=== PATIENT | female | born 1945 | race American Indian/Alaskan Native ===

== ENCOUNTER 2017-12-29 11:23 | Day surgery (SDC) | payer MEDICARE ==
[2017-12-22 09:39] VITALS: BMI 28.1
[2017-12-29] MEDS ORDERED: Propofol 10 mg/ml Inj (20 ML) ONE (14:13)
[2017-12-29] MEDS ORDERED: Midazolam 2 MG/2 ML VIAL ONE (14:13)
[2017-12-29] MEDS ORDERED: Lidocaine 2% Jelly (Uro-Jet) ONE (14:15)
[2017-12-29] MEDS ORDERED: Iodixanol 320 MG/ML 200 ML BOTTLE IV ONE (14:15)
[2017-12-29] MEDS ORDERED: cefTRIAXone IV 1 gm in Dextros 50 ML IVPB ONE (14:15)
[2017-12-29] MEDS ORDERED: Oxycodone/Acetaminophen 5/325 mg Tab PO PRN (14:56)
[2017-12-29 15:55] VITALS: BP 131/66; PULSE 57; RESP 15; TEMP 98; O2SAT 99
--- NOTE | 2017-12-30 08:41 | RAD ---
PROCEDURE: Retrograde urography HISTORY: HEMATURIA COMPARISON: Not available TECHNIQUE: Two upright films were obtained during retrograde administration of contrast material. FINDINGS: A business functional analyst radiograph demonstrates an unremarkable bowel gas pattern. Mild retained fecal matter is noted. The patient is status post left hip arthroplasty. Levoscoliosis of the lumbar spine is noted in conjunction with degenerative disc disease at L3-4. Two overhead films are obtained, 1 of which is labeled post. Contrast material fills the right ureter and pelvicaliceal system demonstrating no filling defect. Contrast material does not distend the left ureter or pelvicaliceal system adequately. Please see the full procedure report from Dr. Quique Castellanos. IMPRESSION: No gross abnormality. Limited evaluation
--- NOTE | 2018-01-18 09:08 | HP ---
REASON FOR ADMISSION: Voiding hematuria and voiding dysfunction. We discussed options with the patient, she preferred anesthesia. We discussed ____ therapy. We discussed, and the patient reported today for cystoscopy and retrograde pyelogram. surgical history as listed on the chart. No history of WI or CVA. The patient is undergoing chemo right now. SOCIAL HISTORY: Essentially unremarkable. ____. DIAGNOSES: Voiding dysfunction and hematuria. PLAN: 1. Antibiotic prophylaxis. 2. Cystoscope. 3. Retrograde pyelogram. 4. Possible biopsy today. 5. outpatient followup. Mook Castellanos MD
--- NOTE | 2018-01-18 09:09 | OP ---
PROCEDURE DATE: 12/29/2017 PREOPERATIVE DIAGNOSES: Voiding dysfunction, hematuria, and irritative complaints. POSTOPERATIVE DIAGNOSES: Voiding dysfunction, hematuria, and irritative complaints. PROCEDURE: General anesthesia, cystoscopy, bilateral retrograde pyelogram. SURGEON: Mook Castellanos MD COMPLICATIONS: There were no complications. BLOOD LOSS: Less than 10 mL. FINDINGS: 1. Normal bladder mucosa, no bladder tumors. 2. Essentially normal upper track. There were no complications. INDICATION: A very pleasant lady who is here for the above testing. We discussed options, risks, benefits. We also discussed the findings with her chemotherapy. We discussed various options with the patient, she is here now for the above treatment. PROCEDURE IN DETAIL: After obtaining informed consent, the patient was placed on the OR table. Routine monitor was placed. Timeout was called. We confirmed the patient and positioning. Cystoscope was introduced via the urethra. Ureteral orifices identified. . There is no bladder cancer identified. Retrograde pyelogram was performed. . There was no abnormality are appreciated. Overall, the patient tolerated the procedure well without complication. Mook Castellanos MD
== END 2017-12-29 17:36 | disposition home or self-care (01) ==
LOC: C.SDS 11:23
PROVIDERS: ATTEND Urology
DX: R31.29 Other microscopic hematuria (principal)
CPT/HCPCS: 52005; 74420; C1758; J0696; J1580; J1885; Q9966

== ENCOUNTER 2018-07-31 22:00 | Emergency (ER) | payer MEDICARE ==
[2018-07-31 22:00] VITALS: BMI 28.6
[2018-07-31 22:32] VITALS: BP 137/81; PULSE 116; RESP 20; TEMP 99.9; O2SAT 95
--- NOTE | 2018-07-31 22:48 | C.PDOC ---
History Of Present Illness Patient complains of cough for 2 weeks with associated nasal congestion and sore throat. Patient stets she was seen by her doctor last week and given antibiotic which she finished. She also is taking Medrol dose pack and using inhaler as needed. She mainly complains of cough that is persistent and keeps her awake at night and gives her headache. Patient also has copy of outpatient chest xray and labwork done, with normal findings. Time Seen by Provider: 07/31/18 22:37 Chief Complaint (Nursing): Cough, Cold, Congestion History Per: Patient History/Exam Limitations: no limitations Onset/Duration Of Symptoms: Days (14) Current Symptoms Are (Timing): Still Present Associated Symptoms: Cough Past Medical History Reviewed: Historical Data, Nursing Documentation, Vital Signs Vital Signs: Last Vital Signs Temp 99.9 F H 07/31/18 22:14 Pulse 116 H 07/31/18 22:14 Resp 20 07/31/18 22:14 BP 137/81 07/31/18 22:14 Pulse Ox 95 07/31/18 22:14 - Medical History PMH: Anemia, Arthritis, Colonic Polyps, HTN, Chronic Kidney Disease Surgical History: Endoscopy - [facility] Procedures OTH NONOPER CARD AND VASC MEASURE (01/26/15) Family History: States: Unknown Family Hx - Social History Hx Alcohol Use: No Hx Substance Use: No - Immunization History Hx Tetanus Toxoid Vaccination: No Hx Influenza Vaccination: No Hx Pneumococcal Vaccination: Yes Review Of Systems Constitutional: Negative for: Fever Eyes: Negative for: Redness ENT: Positive for: Nose Congestion Cardiovascular: Negative for: Chest Pain, Palpitations Respiratory: Positive for: Cough. Negative for: Shortness of Breath, Wheezing Neurological: Positive for: Headache. Negative for: Weakness, Numbness, Dizziness Physical Exam - Physical Exam Appears: Non-toxic, No Acute Distress Skin: Warm, Dry Head: Atraumatic, Normacephalic Eye(s): bilateral: Normal Inspection, EOMI Ear(s): Bilateral: Normal Nose: Normal Oral Mucosa: Moist Neck: Normal ROM Chest: Symmetrical Cardiovascular: Rhythm Regular, No Murmur Respiratory: Normal Breath Sounds, No Accessory Muscle Use, No Rales, No Rhonchi, No Wheezing Extremity: Bilateral: Atraumatic, Normal ROM Neurological/Psych: Oriented x3, Normal Speech Gait: Steady ED Course And Treatment O2 Sat by Pulse Oximetry: 95 Medical Decision Making Medical Decision Making: Impression: Bronchitis Plan: Tessalon PO Patient appears clinically well, nontoxic and in no respiratory distress. Lungs were clear bilaterally with good air intake. Patient already had workup done by PMD and results WNL. No further ED workup indicated. Patient advised to take cough syrup and rest Disposition Counseled Patient/Family Regarding: Diagnosis, Need For Followup, Rx Given - Disposition Referrals: Scottie Abad MD [Staff Provider] - Disposition: HOME/ ROUTINE Disposition Time: 23:30 Condition: GOOD Additional Instructions: Finish medicine given by your doctor Take cough medicine as needed Return to hospital for any worsening symptoms or shortness of breath Prescriptions: Promethazine HCl/Codeine [Promethazine-Codeine Syrup] 5 ml PO Q8 PRN 1 Days #150 ml NS PRN Reason: Cough Instructions: Acute Bronchitis, Adult (DC) Forms: [employer] (Hebrew) - POA Present On Arrival: None - Clinical Impression Clinical Impression: Bronchitis
== END 2018-07-31 23:33 | disposition home or self-care (01) ==
LOC: C.ER 22:00
DX: J40 Bronchitis, not specified as acute or chronic (principal)

== ENCOUNTER 2018-09-10 08:24 | Outpatient (CLI) | payer MEDICARE | END 2018-09-10 08:25 | disposition home or self-care (01) | LOC: C.CTH 08:24 | DX: R05 Cough (principal) ==

== ENCOUNTER 2018-09-10 09:26 | Inpatient (IN) | payer MEDICARE ==
[2018-09-10 09:26] VITALS: BMI 28.6
[2018-09-10] MEDS ORDERED: Azithromycin 500 MG in Sodium Chloride 0.9% 250 ML IVPB STA (10:01)
--- NOTE | 2018-09-10 10:15 | C.PDOC ---
History Of Present Illness 73yo female, with history of lymphoma (in remission), sent to ER by Dr. Abad for evaluation of cough, and failed outpatient therapy. Patient states since she got her flu shot in May, she has had cough, and has not been fee ling well. Otherwise, she denies any fever, chills, chest pain, vomiting, or shortness of breath. No additional complaints. PMD: Dr. Abad Time Seen by Provider: 09/10/18 09:30 Chief Complaint (Nursing): Cough, Cold, Congestion History Per: Patient History/Exam Limitations: no limitations Onset/Duration Of Symptoms: Persistent Current Symptoms Are (Timing): Still Present Associated Symptoms: Cough Additional History Per: Patient Past Medical History Reviewed: Historical Data, Nursing Documentation, Vital Signs Vital Signs: Last Vital Signs Temp 98.2 F 09/10/18 09:36 Pulse 117 H 09/10/18 09:36 Resp 18 09/10/18 09:36 BP 143/78 09/10/18 09:36 Pulse Ox 97 09/10/18 09:36 - Medical History PMH: Anemia, Arthritis, Colonic Polyps, HTN, Chronic Kidney Disease Other PMH: lymphoma Surgical History: Endoscopy Denies: Pacemaker - [facility] Procedures OTH NONOPER CARD AND VASC MEASURE (01/26/15) Family History: States: No Known Family Hx, Unknown Family Hx - Social History Hx Tobacco Use: No Hx Alcohol Use: No Hx Substance Use: No - Immunization History Hx Tetanus Toxoid Vaccination: No Hx Influenza Vaccination: No Hx Pneumococcal Vaccination: Yes Review Of Systems Except As Marked, All Systems Reviewed And Found Negative. Constitutional: Negative for: Fever, Chills Cardiovascular: Negative for: Chest Pain Respiratory: Positive for: Cough. Negative for: Shortness of Breath Gastrointestinal: Negative for: Vomiting Physical Exam - Physical Exam Appears: Non-toxic Skin: Normal Color, Warm, Dry Head: Normacephalic Eye(s): bilateral: Normal Inspection Oral Mucosa: Moist Neck: Supple Chest: Symmetrical Cardiovascular: Rhythm Regular Respiratory: Normal Breath Sounds, No Rales, No Rhonchi, No Wheezing, Other (actively coughing) Gastrointestinal/Abdominal: Normal Exam, Soft, No Tenderness Back: Normal Inspection Extremity: Normal ROM, No Pedal Edema Neurological/Psych: Oriented x3 ED Course And Treatment - Laboratory Results Result Diagrams: 09/10/18 10:23 09/10/18 10:23 ECG: Interpreted By Me, Viewed By Me ECG Rhythm: Sinus Tachycardia ECG Interpretation: Normal Rate From EC O2 Sat by Pulse Oximetry: 97 (RA) Pulse Ox Interpretation: Normal - Other Rad CXR X-Ray: Read By Radiologist Interpretation: FINDINGS: LUNGS: Clear. PLEURA: No pneumothorax or pleural fluid seen. CARDIOVASCULAR: No aortic atherosclerotic calcification present. Normal. OSSEOUS STRUCTURES: No significant abnormalities. VISUALIZED UPPER ABDOMEN: Normal. OTHER FINDINGS: None. IMPRESSION: No active disease. Progress Note: 0958: Case discussed with Dr. Abad, who is requesting rocephin and zithromax; IV solumedrol; basic labs. Rapid flu, UA and EKG ordered as well. 1150: Rapid flu negative. Case discussed with Dr. Abad, who states he will admit the patient due to bronchitis that is not responding to outpatient treatment.. 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 - Scribe Statement The provider has reviewed the documentation as recorded by the Scribe (Sarah Townsend) Provider Attestation: All medical record entries made by the Scribe were at my direction and persona lly dictated by me. I have reviewed the chart and agree that the record accurately reflects my personal performance of the history, physical exam, medical decision making, and the department course for this patient. I have also personally directed, reviewed, and agree with the discharge instructions and disposition. Decision To Admit - . Admitting Physician: Scottie Abad Patient Diagnosis: Bronchitis
--- NOTE | 2018-09-10 10:17 | RAD ---
Date of service: 09/10/2018 PROCEDURE: CHEST RADIOGRAPH, 1 VIEW HISTORY: cough x 2 months COMPARISON: 07/19/2018 FINDINGS: LUNGS: Clear. PLEURA: No pneumothorax or pleural fluid seen. CARDIOVASCULAR: No aortic atherosclerotic calcification present. Normal. OSSEOUS STRUCTURES: No significant abnormalities. VISUALIZED UPPER ABDOMEN: Normal. OTHER FINDINGS: None. IMPRESSION: No active disease.
[2018-09-10] MEDS ORDERED: Azithromycin 500mg/250ML NS 500 MG/250 ML BAG IVPB ONE (10:27)
[2018-09-10] MEDS ORDERED: cefTRIAXone 1 gm 1 GM/100 ML BAG IVPB ONE ×2 (10:27→10:28)
[2018-09-10 10:29] LABS: BASO # 0.1 K/uL (0.0-0.2); BASO % 1.3 % (0.0-2.0); EOS # 0.2 K/uL (0.0-0.7); EOS % 2.7 % (0.0-4.0); LYMPH # 1.3 K/uL (1.0-4.3); LYMPH % 16.5 % (20.0-40.0); MEAN CELL VOLUME 88.7 fL (81.0-99.0); MEAN CORPUSCULAR HEMOGLOBIN 29.3 pg (27.0-31.0); MEAN CORPUSCULAR HGB CONC 33.1 g/dL (33.0-37.0); MEAN PLATELET VOLUME 7.8 fL (7.2-11.7); MONO # 0.8 K/uL (0.0-0.8); MONO % 11.2 % (0.0-10.0); NEUT # 5.2 K/uL (1.8-7.0); NEUT % 68.3 % (50.0-75.0); NRBC % 0.1 % (0.0-2.0); RBC 3.4 Mil/uL (3.80-5.20)
[2018-09-10 10:41] LABS: ALB/GLOB RATIO 1.2 (1.0-2.1); ALBUMIN 3.7 g/dL (3.5-5.0); ALT/SGPT 25 U/L (9-52); AST/SGOT 33 U/L (14-36); BLOOD UREA NITROGEN 6 mg/dL (7-17); CALCIUM 8.9 mg/dl (8.6-10.4); GFR NON-AFRICAN AMERICAN > 60
[2018-09-10 10:43] LABS: WHITE BLOOD COUNT 7.6 K/uL (4.8-10.8)
[2018-09-10 13:16] LABS: SQUAMOUS EPITHIAL < 1 /hpf (0-5); URINE BILIRUBIN NEGATIVE (NEGATIVE); URINE BLOOD NEGATIVE (NEGATIVE); URINE CLARITY Clear (Clear); URINE COLOR Straw (YELLOW); URINE GLUCOSE (UA) NORMAL (Normal); URINE LEUKOCYTE ESTERASE NEG Leu/uL (Negative); URINE PROTEIN NEGATIVE (NEGATIVE); URINE UROBILINOGEN NORMAL mg/dL (0.2-1.0)
--- NOTE | 2018-09-10 18:32 | CP.PCM.HP ---
History of Present Illness - History of Present Illness History of Present Illness: Chief complaint: , Shortness of breath, worsening cough History present illness: 70-year-old female with history of hypertension, lymphoma, osteoarthritis and also patient had a recurrent lymphoma recently treated, and the Port-A-Cath was removed recently. A month ago patient came to my office with progressively worsening cough, at that time patient started on multiple antibiotic treatment, but there was no improvement, sputum culture was showing evidence of haemophilus influenza which was also treated with the Zithromax. Initially patient had a significant improvement, but he again started having more worsening cough, the last 1 week he has symptoms is not improving. Associated shortness of breath. Because of the failed outpatient treatment multiple times with multiple antibiotic patient got more worse and I decided to send her to the emergency room. Even now she is having increasing cough. Mucus production present. Mostly clear mucus. Not feeling well. Throat pain noted. Difficult time in swallowing. Shortness of breath on exertion also noted. Past medical history: Hypertension, lymphoma osteoarthritis Allergy: No known drug allergy except to ciprofloxacin Surgical history total hip replacement. Lymphoid resection on the submandibular right side Personal history: Lifelong nonsmoker, nonalcoholic Family history noncontributory On examination: HEENT PERRLA, neck supple. Oral thrush present. Bilateral wheezing in the lungs noted Regular heart sound. Regular and respiration, Abdomen soft, nontender No pedal edema noted Chest x-ray showing evidence of minimal infiltrative changes. CT scan confirming that there is a diffuse bronchovascular markings, also increased pulmonary nodular pattern noted in the lungs bilaterally. Labs nonspecific otherwise. Assessment/condition: 70-year-old female with history of lymphoma, hypertension, osteoarthritis now admitted with Possible worsening pneumonia, interstitial lung disease. Failed outpatient treatment. Patient is currently will be receiving intravenous corticosteroids, bronchodilators, also antibiotic. Patient might need a bronchoscopy, we will plan on Thursday. Meanwhile we will get a sputum culture. DVT GI prophylaxis. We will follow the patient Present on Admission - Present on Admission Any Indicators Present on Admission: No History of DVT/PE: No History of Uncontrolled Diabetes: No Urinary Catheter: No Decubitus Ulcer Present: No Past Patient History - Past Medical History & Family History Past Medical History?: Yes - Past Social History Smoking Status: n - CARDIAC Hx Hypertension: Yes Hx Pacemaker: No - PULMONARY Hx Respiratory Disorders: No - NEUROLOGICAL Hx Paralysis: No - HEENT Hx HEENT Problems: Yes Hx Cataracts: Yes (BOTH EYES SMALL AMOUNT OF CATARACT) - RENAL Hx Chronic Kidney Disease: Yes - ENDOCRINE/METABOLIC Hx Endocrine Disorders: No - HEMATOLOGICAL/ONCOLOGICAL Hx Anemia: Yes - INTEGUMENTARY Hx Dermatological Problems: Yes - MUSCULOSKELETAL/RHEUMATOLOGICAL Hx Arthritis: Yes - GASTROINTESTINAL Hx Gastrointestinal Disorders: Yes Hx Gastroesophageal Reflux: Yes - GENITOURINARY/GYNECOLOGICAL Hx Genitourinary Disorders: Yes Hx Hematuria: Yes Other/Comment: PT. FOR SURGERY 11/19/15-DX: FIBROID UTERUS. - PSYCHIATRIC Hx Substance Use: No - SURGICAL HISTORY Hx Orthopedic Surgery: Yes (left hip surgery) - ANESTHESIA Hx Anesthesia: Yes Hx Anesthesia Reactions: No Hx Malignant Hyperthermia: No Meds Allergies/Adverse Reactions: Allergies Allergy/AdvReac Type Severity Reaction Status Date / Time latex Allergy Severe RASH Verified 09/10/18 09:35 shellfish derived Allergy Severe RASH Verified 09/10/18 09:35 ciprofloxacin HCl Allergy Intermediate RASH Verified 09/10/18 09:35 [From Cipro] Sulfa (Sulfonamide Allergy Intermediate RASH Verified 09/10/18 09:35 Antibiotics) sulfamethoxazole Allergy Intermediate RASH Verified 09/10/18 09:35 [From Bactrim] trimethoprim [From Bactrim] Allergy Intermediate RASH Verified 09/10/18 09:35 Results - Vital Signs Recent Vital Signs: Last Vital Signs Temp 98.1 F 09/10/18 15:00 Pulse 100 H 09/10/18 15:00 Resp 20 09/10/18 15:00 BP 128/75 09/10/18 15:00 Pulse Ox 97 09/10/18 15:59 - Labs Result Diagrams: 09/10/18 10:23 09/10/18 10:23 Labs: Laboratory Results - last 24 hr 09/10/18 09/10/18 09/10/18 10:23 10:23 10:23 WBC 7.6 D RBC 3.40 L Hgb 10.0 L Hct 30.2 L MCV 88.7 MCH 29.3 MCHC 33.1 RDW 14.0 Plt Count 412 H D MPV 7.8 Neut % (Auto) 68.3 Lymph % (Auto) 16.5 L [place] % (Auto) 11.2 H Eos % (Auto) 2.7 Baso % (Auto) 1.3 Neut # (Auto) 5.2 Lymph # (Auto) 1.3 [place] # (Auto) 0.8 Eos # (Auto) 0.2 Baso # (Auto) 0.1 Sodium 134 Potassium 4.4 Chloride 98 Carbon Dioxide 30 Anion Gap 10 BUN 6 L Creatinine 0.5 L Est GFR ( Amer) > 60 Est GFR (Non-Af Amer) > 60 Random Glucose 95 Calcium 8.9 Total Bilirubin 0.6 AST 33 ALT 25 Alkaline Phosphatase 92 Total Protein 6.7 Albumin 3.7 Globulin 3.0 Albumin/Globulin Ratio 1.2 Urine Color Urine Clarity Urine pH Ur Specific [place] Urine Protein Urine Glucose (UA) Urine Ketones Urine Blood Urine Nitrate Urine Bilirubin Urine Urobilinogen Ur Leukocyte Esterase Urine WBC (Auto) Urine RBC (Auto) Ur Squamous Epith Cells Influenza Typ A,B (EIA) Negative for flu a/b 09/10/18 12:52 WBC RBC Hgb Hct MCV MCH MCHC RDW Plt Count MPV Neut % (Auto) Lymph % (Auto) [place] % (Auto) Eos % (Auto) Baso % (Auto) Neut # (Auto) Lymph # (Auto) [place] # (Auto) Eos # (Auto) Baso # (Auto) Sodium Potassium Chloride Carbon Dioxide Anion Gap BUN Creatinine Est GFR ( Amer) Est GFR (Non-Af Amer) Random Glucose Calcium Total Bilirubin AST ALT Alkaline Phosphatase Total Protein Albumin Globulin Albumin/Globulin Ratio Urine Color Straw Urine Clarity Clear Urine pH 7.0 Ur Specific [place] 1.003 Urine Protein Negative Urine Glucose (UA) Normal Urine Ketones Negative Urine Blood Negative Urine Nitrate Negative Urine Bilirubin Negative Urine Urobilinogen Normal Ur Leukocyte Esterase Neg Urine WBC (Auto) < 1 Urine RBC (Auto) 1 Ur Squamous Epith Cells < 1 Influenza Typ A,B (EIA)
[2018-09-11] MEDS: Albuterol-Ipratrop 3 mg / 0.5 (3 ml) UD INH SCH ×4 (02:30→19:26)
[2018-09-11 08:32] LABS: BASO # 0.1 K/uL (0.0-0.2); BASO % 1.3 % (0.0-2.0); EOS % 0.1 % (0.0-4.0); HEMOGLOBIN 9.9 g/dL (11.0-16.0); LYMPH # 1.9 K/uL (1.0-4.3); LYMPH % 22.1 % (20.0-40.0); MEAN CELL VOLUME 88.2 fL (81.0-99.0); MEAN CORPUSCULAR HEMOGLOBIN 29.1 pg (27.0-31.0); MEAN PLATELET VOLUME 7.7 fL (7.2-11.7); MONO # 0.9 K/uL (0.0-0.8); MONO % 10.8 % (0.0-10.0); NEUT # 5.6 K/uL (1.8-7.0); NEUT % 65.7 % (50.0-75.0); NRBC % 0.1 % (0.0-2.0); RBC 3.4 Mil/uL (3.80-5.20); RED CELL DISTRIBUTION WIDTH 14.1 % (11.5-14.5); WHITE BLOOD COUNT 8.6 K/uL (4.8-10.8)
[2018-09-11] MEDS: Azithromycin 500 MG in Sodium Chloride 0.9% 250 ML IVPB SCH (09:43)
--- NOTE | 2018-09-11 23:55 | CP.PCM.PN ---
Subjective - Date & Time of Evaluation Date of Evaluation: 09/11/18 Time of Evaluation: 23:55 - Subjective Subjective: Patient is having less cough than yesterday. But is still having some chest tightness and wheezing. Denies any fever. No sore throat. Complaining of no nausea, no vomiting. But abdominal discomfort present On examination: Vital signs stable. Chest minimal expiratory wheezing noted Regular heart sounds noted Nontender abdomen Labs: Elevated ESR more than 90, elevated CRP level noted Assessment and recommendation: 73-year-old female with a history of lymphoma status post chemotherapy gastritis admitted to the hospital with recurrent lung symptoms Underlying pneumonia, bronchopneumonia likely. Currently on antibiotic. Being the nodular lesions I would like to rule out any granulomatous disease in the lungs. If no improvement plan for bronchoscopy on Thursday Objective - Vital Signs/Intake and Output Vital Signs (last 24 hours): Temp Pulse Resp BP Pulse Ox 97.5 F L 94 H 20 135/68 98 09/11/18 17:05 09/11/18 17:05 09/11/18 17:05 09/11/18 17:05 09/11/18 17:05 Intake and Output: 09/11/18 09/12/18 18:59 06:59 Intake Total 300 Balance 300 - Medications Medications: Current Medications Albuterol/Ipratropium (Duoneb 3 Mg/0.5 Mg (3 Ml) Ud) 3 ml INH RQ6 LUBNA Last Admin: 09/11/18 19:26 Dose: 3 ml Heparin Sodium (Porcine) (Heparin) 5,000 units SC Q8 LUBNA Last Admin: 09/11/18 21:25 Dose: 5,000 units Ceftriaxone Sodium 1 gm/ (Sodium Chloride) 100 mls @ 100 mls/hr IVPB DAILY LUBNA; Protocol Last Admin: 09/11/18 09:43 Dose: 100 mls/hr Azithromycin 500 mg/ Sodium (Chloride) 250 mls @ 250 mls/hr IVPB DAILY LUBNA; Protocol Last Admin: 09/11/18 09:43 Dose: 250 mls/hr Losartan Potassium (Cozaar) 25 mg PO DAILY LUBNA Last Admin: 09/11/18 09:43 Dose: 25 mg Pantoprazole Sodium (Protonix Inj) 40 mg IVP DAILY LUBNA Last Admin: 09/11/18 09:25 Dose: 40 mg - Labs Labs: 09/11/18 08:24 09/10/18 10:23
[2018-09-12] MEDS ORDERED: guaiFENesin 100 mg/5 ml Syrup UD PO ONE (00:16)
[2018-09-12] MEDS: Albuterol-Ipratrop 3 mg / 0.5 (3 ml) UD INH SCH ×4 (01:02→19:56)
[2018-09-12 09:41] LABS: BASO # 0.1 K/uL (0.0-0.2); BASO % 1.5 % (0.0-2.0); EOS # 0.2 K/uL (0.0-0.7); EOS % 2.3 % (0.0-4.0); HEMOGLOBIN 10.5 g/dL (11.0-16.0); LYMPH # 2.5 K/uL (1.0-4.3); LYMPH % 36.1 % (20.0-40.0); MEAN CELL VOLUME 89.3 fL (81.0-99.0); MEAN CORPUSCULAR HEMOGLOBIN 29.3 pg (27.0-31.0); MEAN CORPUSCULAR HGB CONC 32.8 g/dL (33.0-37.0); MEAN PLATELET VOLUME 7.9 fL (7.2-11.7); MONO # 0.8 K/uL (0.0-0.8); NEUT # 3.4 K/uL (1.8-7.0); NEUT % 49.1 % (50.0-75.0); RBC 3.58 Mil/uL (3.80-5.20); RED CELL DISTRIBUTION WIDTH 14.2 % (11.5-14.5)
[2018-09-12 10:05] LABS: ALB/GLOB RATIO 1.2 (1.0-2.1); ALBUMIN 3.6 g/dL (3.5-5.0); ALT/SGPT 22 U/L (9-52); AST/SGOT 31 U/L (14-36); BLOOD UREA NITROGEN 9 mg/dL (7-17); CALCIUM 9.3 mg/dl (8.6-10.4); GFR NON-AFRICAN AMERICAN > 60
[2018-09-12] MEDS: Azithromycin 500 MG in Sodium Chloride 0.9% 250 ML IVPB SCH (10:23)
[2018-09-12] MEDS: Acetylcysteine 20% Inhal Soln (4ml) INH SCH ×3 (10:24→19:56)
[2018-09-12] MEDS ORDERED: guaiFENesin 100 mg/5 ml Syrup UD PO PRN (10:49)
[2018-09-13] MEDS: Albuterol-Ipratrop 3 mg / 0.5 (3 ml) UD INH SCH ×4 (02:38→19:56)
[2018-09-13] MEDS: Acetylcysteine 20% Inhal Soln (4ml) INH SCH ×4 (02:38→19:55)
[2018-09-13 08:03] LABS: INR 1.2; PROTHROMBIN TIME 13.4 SECONDS (9.7-12.2)
[2018-09-13] MEDS: Azithromycin 500 MG in Sodium Chloride 0.9% 250 ML IVPB SCH (10:12)
--- NOTE | 2018-09-13 13:42 | CARD ---
APPROVED REPORT Date of service: 09/10/2018 EKG Measurement Heart [id number] [place] [id number] [id number] <Conclusion> Sinus tachycardia Possible Left atrial enlargement Borderline ECG
[2018-09-13] MEDS ORDERED: EPINEPHrine 1 mg/ml (1:1000) Inj ONE (14:35)
[2018-09-13] MEDS ORDERED: Lidocaine Hydrochloride 20 ML INJ ONE (14:35)
[2018-09-13] MEDS ORDERED: Propofol 10 mg/ml Inj (20 ML) ONE (14:49)
[2018-09-13] MEDS ORDERED: Midazolam 2 MG/2 ML VIAL ONE (14:49)
--- NOTE | 2018-09-13 15:16 | PCM.SURG1 ---
Surgeon's Initial Post Op Note - Surgeon's Notes Surgeon: tanya Deck Mechanic: non Pre-Operative Diagnosis: cough Operative Findings: tracheal redness and erythema Post-Operative Diagnosis: same Operation Performed: brochonchoscopy and BAL and Brushing Specimen/Specimens Removed: bal, brushing Estimated Blood Loss: EBL {In ML}: 0 Date of Surgery/Procedure: 09/13/18 Time of Surgery/Procedure: 15:16
[2018-09-13] MEDS ORDERED: Lactated Ringer's 1,000 ML IV ONE (15:17)
[2018-09-13] MEDS ORDERED: Albuterol-Ipratrop 3 mg / 0.5 (3 ml) UD INH STA (15:18)
[2018-09-13] MEDS ORDERED: Lactated Ringer's 1,000 ML IV SCH (15:30)
[2018-09-13] MEDS ORDERED: HYDROmorphone 0.5 mg/0.5 ml ISec IVP PRN (15:31)
--- NOTE | 2018-09-13 16:33 | RAD ---
HISTORY: ptx COMPARISON: Chest x-ray 09/10/18 TECHNIQUE: Chest, one view. FINDINGS: External artifact relating to patient's breathing apparatus projects over the left lung apex limiting evaluation. LUNGS: No focal consolidation. Please note that chest x-ray has limited sensitivity for the detection of pulmonary masses. PLEURA: No significant pleural effusion identified. No definite pneumothorax . CARDIOVASCULAR: The cardiomediastinal silhouette appears within normal limits of size. No significant atherosclerotic calcification present. OSSEOUS STRUCTURES: No acute osseous abnormality identified. VISUALIZED UPPER ABDOMEN: Unremarkable. OTHER FINDINGS: None. IMPRESSION: No definite pneumothorax identified.
--- NOTE | 2018-09-13 17:57 | CP.PCM.PN ---
Subjective - Date & Time of Evaluation Date of Evaluation: 09/12/18 Time of Evaluation: 17:56 - Subjective Subjective: Patient still continues to cough. Cough assist with mucus production. Very scanty. So far the cultures are negative. Vital signs stable. Minimal expiratory wheezing noted We will plan for bronchoscopy tomorrow. We will continue the current treatment. Objective - Vital Signs/Intake and Output Vital Signs (last 24 hours): Temp Pulse Resp BP Pulse Ox 98.5 F 112 H 22 126/66 98 09/13/18 16:30 09/13/18 16:30 09/13/18 16:30 09/13/18 16:30 09/13/18 16:30 Intake and Output: 09/13/18 09/13/18 06:59 18:59 Intake Total 340 250 Balance 340 250 - Medications Medications: Current Medications Acetylcysteine (Acetylcysteine 20%) 4 ml INH RQ6 LUBNA Last Admin: 09/13/18 13:24 Dose: Not Given Albuterol/Ipratropium (Duoneb 3 Mg/0.5 Mg (3 Ml) Ud) 3 ml INH RQ6 LUBNA Last Admin: 09/13/18 13:24 Dose: Not Given Guaifenesin (Robitussin) 100 mg PO Q4H PRN PRN Reason: Cough Heparin Sodium (Porcine) (Heparin) 5,000 units SC Q8 LUBNA Last Admin: 09/13/18 13:07 Dose: Not Given Ceftriaxone Sodium 1 gm/ (Sodium Chloride) 100 mls @ 100 mls/hr IVPB DAILY LUBNA; Protocol Last Admin: 09/13/18 10:12 Dose: 100 mls/hr Azithromycin 500 mg/ Sodium (Chloride) 250 mls @ 250 mls/hr IVPB DAILY LUBNA; Protocol Last Admin: 09/13/18 10:12 Dose: 250 mls/hr Losartan Potassium (Cozaar) 25 mg PO DAILY LUBNA Last Admin: 09/13/18 10:11 Dose: Not Given Pantoprazole Sodium (Protonix Inj) 40 mg IVP DAILY LUBNA Last Admin: 09/13/18 10:47 Dose: 40 mg - Labs Labs: 09/12/18 09:31 09/12/18 09:31 PT 13.4 SECONDS (9.7-12.2) H 09/13/18 07:46 INR 1.2 09/13/18 07:46 APTT 40 SECONDS (21-34) H 09/13/18 07:46
[2018-09-14 00:05] VITALS: RESP 20
[2018-09-14] MEDS: Acetylcysteine 20% Inhal Soln (4ml) INH SCH ×2 (02:00→08:16)
[2018-09-14] MEDS: Albuterol-Ipratrop 3 mg / 0.5 (3 ml) UD INH SCH ×2 (02:00→08:16)
--- NOTE | 2018-09-14 06:46 | OP ---
PROCEDURE DATE: 09/13/2018 PROCEDURE: Bronchoscopy. CONSENT: Informed consent from the patient. INDICATION FOR THE PROCEDURE: Chronic cough. DESCRIPTION OF PROCEDURE: The patient was brought to the endoscopy room. Under conscious sedation, local anesthesia over the nostrils and the throat. The bronchoscopy was introduced through the left nostril. The vocal cord verified. There was a thickening of the arytenoid as well as vocal cord folds, arytenoid fold with thickening noted. Upon entering into the trachea, the patient was having significant coughing episodes. There was a slight mucous secretion was noted in the left lower bronchial region. Brushing was taken. Cultures were BAL as well as BAL collected from the left upper and lower lung zones. There was also erythema with easy bleeding with touch of the bronchoscopy noted. Otherwise, clinically sable. Postoperatively, the patient did very well. Chest x-ray negative. Clinically stable. She will be monitored in the PACU. Scottie Abad MD
[2018-09-14 07:35] VITALS: BP 120/70; PULSE 96; TEMP 98; O2SAT 96
--- NOTE | 2018-09-14 09:14 | CP.PCM.DIS ---
Provider - Provider Date of Admission: 09/10/18 11:26 Attending physician: Scottie Abad MD Consults: 09/10/18 15:46 Hematology Oncology Consult Routine Comment: Consulting Provider: Rico Francisco Consulting Physician: Rico Francisco Reason for Consult: pulmonary infiltrate h/o lymphoma Time Spent in preparation of Discharge (in minutes): 45 Hospital Course - Lab Results Lab Results: Micro Results 09/10/18 10:43 Blood Blood Culture - Preliminary NO GROWTH AFTER 3 DAYS 09/10/18 10:13 Blood Blood Culture - Preliminary NO GROWTH AFTER 3 DAYS 09/12/18 12:25 Sputum Gram Stain - Final Most Recent Lab Values WBC 7.0 K/uL (4.8-10.8) 09/12/18 09:31 RBC 3.58 Mil/uL (3.80-5.20) L 09/12/18 09:31 Hgb 10.5 g/dL (11.0-16.0) L 09/12/18 09:31 Hct 32.0 % (34.0-47.0) L 09/12/18 09:31 MCV 89.3 fL (81.0-99.0) 09/12/18 09:31 MCH 29.3 pg (27.0-31.0) 09/12/18 09:31 MCHC 32.8 g/dL (33.0-37.0) L 09/12/18 09:31 RDW 14.2 % (11.5-14.5) 09/12/18 09:31 Plt Count 482 K/uL (130-400) H 09/12/18 09:31 MPV 7.9 fL (7.2-11.7) 09/12/18 09:31 Neut % (Auto) 49.1 % (50.0-75.0) L 09/12/18 09:31 Lymph % (Auto) 36.1 % (20.0-40.0) 09/12/18 09:31 [place] % (Auto) 11.0 % (0.0-10.0) H 09/12/18 09:31 Eos % (Auto) 2.3 % (0.0-4.0) 09/12/18 09:31 Baso % (Auto) 1.5 % (0.0-2.0) 09/12/18 09:31 Neut # (Auto) 3.4 K/uL (1.8-7.0) 09/12/18 09:31 Lymph # (Auto) 2.5 K/uL (1.0-4.3) 09/12/18 09:31 [place] # (Auto) 0.8 K/uL (0.0-0.8) 09/12/18 09:31 Eos # (Auto) 0.2 K/uL (0.0-0.7) 09/12/18 09:31 Baso # (Auto) 0.1 K/uL (0.0-0.2) 09/12/18 09:31 ESR 90 mm/hr (0-20) H 09/11/18 08:24 PT 13.4 SECONDS (9.7-12.2) H 09/13/18 07:46 INR 1.2 09/13/18 07:46 APTT 40 SECONDS (21-34) H 09/13/18 07:46 Sodium 138 mmol/L (132-148) 09/12/18 09:31 Potassium 3.8 mmol/L (3.6-5.2) 09/12/18 09:31 Chloride 100 mmol/L (98-107) 09/12/18 09:31 Carbon Dioxide 30 mmol/L (22-30) 09/12/18 09:31 Anion Gap 12 (10-20) 09/12/18 09:31 BUN 9 mg/dL (7-17) 09/12/18 09:31 Creatinine 0.6 mg/dL (0.7-1.2) L 09/12/18 09:31 Est GFR ( Amer) > 60 09/12/18 09:31 Est GFR (Non-Af Amer) > 60 09/12/18 09:31 Random Glucose 92 mg/dL (65-105) 09/12/18 09:31 Calcium 9.3 mg/dl (8.6-10.4) 09/12/18 09:31 Phosphorus 4.3 mg/dL (2.5-4.5) 09/12/18 09:31 Magnesium 2.1 mg/dL (1.6-2.3) 09/12/18 09:31 Total Bilirubin 0.3 mg/dL (0.2-1.3) 09/12/18 09:31 AST 31 U/L (14-36) 09/12/18 09:31 ALT 22 U/L (9-52) 09/12/18 09:31 Alkaline Phosphatase 96 U/L (38-126) 09/12/18 09:31 C-Reactive Protein 128.80 mg/L (0.0-9.9) H 09/11/18 08:24 Total Protein 6.5 g/dL (6.3-8.3) 09/12/18 09:31 Albumin 3.6 g/dL (3.5-5.0) 09/12/18 09:31 Globulin 3.0 gm/dL (2.2-3.9) 09/12/18 09:31 Albumin/Globulin Ratio 1.2 (1.0-2.1) 09/12/18 09:31 Urine Color Straw (YELLOW) 09/10/18 12:52 Urine Clarity Clear (Clear) 09/10/18 12:52 Urine pH 7.0 (5.0-8.0) 09/10/18 12:52 Ur Specific [place] 1.003 (1.003-1.030) 09/10/18 12:52 Urine Protein Negative mg/dL (NEGATIVE) 09/10/18 12:52 Urine Glucose (UA) Normal mg/dL (Normal) 09/10/18 12:52 Urine Ketones Negative mg/dL (NEGATIVE) 09/10/18 12:52 Urine Blood Negative (NEGATIVE) 09/10/18 12:52 Urine Nitrate Negative (NEGATIVE) 09/10/18 12:52 Urine Bilirubin Negative (NEGATIVE) 09/10/18 12:52 Urine Urobilinogen Normal mg/dL (0.2-1.0) 09/10/18 12:52 Ur Leukocyte Esterase Neg Molly/uL (Negative) 09/10/18 12:52 Urine WBC (Auto) < 1 /hpf (0-5) 09/10/18 12:52 Urine RBC (Auto) 1 /hpf (0-3) 09/10/18 12:52 Ur Squamous Epith Cells < 1 /hpf (0-5) 09/10/18 12:52 Influenza Typ A,B (EIA) Negative for flu a/b (NEGATIVE) 09/10/18 10:23 Anti-Streptolysin O Ab Negative (NEGATIVE) 09/11/18 08:24 - Hospital Course Hospital Course: Chief complaint: , Shortness of breath, worsening cough History present illness: 70-year-old female with history of hypertension, lymphoma, osteoarthritis and also patient had a recurrent lymphoma recently treated, and the Port-A-Cath was removed recently. A month ago patient came to my office with progressively worsening cough, at that time patient started on multiple antibiotic treatment, but there was no improvement, sputum culture was showing evidence of haemophilus influenza which was also treated with the Zithromax. Initially patient had a significant improvement, but he again started having more worsening cough, the last 1 week he has symptoms is not improving. Associated shortness of breath. Because of the failed outpatient treatment multiple times with multiple antibiotic patient got more worse and I decided to send her to the emergency room. Even now she is having increasing cough. Mucus production present. Mostly clear mucus. Not feeling well. Throat pain noted. Difficult time in swallowing. Shortness of breath on exertion also noted. Past medical history: Hypertension, lymphoma osteoarthritis Allergy: No known drug allergy except to ciprofloxacin Surgical history total hip replacement. Lymphoid resection on the submandibular right side Personal history: Lifelong nonsmoker, nonalcoholic Family history noncontributory On examination: HEENT PERRLA, neck supple. Oral thrush present. Bilateral wheezing in the lungs noted Regular heart sound. Regular and respiration, Abdomen soft, nontender No pedal edema noted Chest x-ray showing evidence of minimal infiltrative changes. CT scan confirming that there is a diffuse bronchovascular markings, also increased pulmonary nodular pattern noted in the lungs bilaterally. Labs nonspecific otherwise. Assessment/condition: 70-year-old female with history of lymphoma, hypertension, osteoarthritis now admitted with Possible worsening pneumonia, interstitial lung disease. Failed outpatient treatment. Patient is currently will be receiving intravenous corticosteroids, bronchodilators, also antibiotic. Patient might need a bronchoscopy, we will plan on Thursday. Meanwhile we will get a sputum culture. DVT GI prophylaxis. We will follow the patient Course in the hospital: Patient was initially admitted with acute exacerbation of the bronchitis. Also possible pneumonia. CAT scan of the chest showing evidence of micronodular disease of the lungs. Patient started on ceftriaxone, azithromycin. Meanwhile evaluation of the sputum nonspecific. Patient agreeing for the bronchoscopy. Yesterday patient underwent a bronchoscopic evaluation. Diagnostic. BAL, brushing was done. Microbiology, culture are currently pending. Patient is clinically stable. She is feeling well. She can be discharged home. We will follow the patient as an outpatient. Assessment and recognition: 72-year-old female with a history of hypertension, history of gastroesophageal reflux disease. History of lymphoma on remission now. Patient has a possible vocal cord dysfunction, associated with thickening of the vocal cord most likely related to postnasal drip, gastroesophageal reflux disease, or chronic cough. I recommended a ENT evaluation. Culture to be followed up. Meanwhile added gabapentin 100 mg at bedtime to reduce the neuropathic reflexes of the cough. Brovana via nebulizer Cough medication with codeine recommended at night as needed. No further antibiotic needed at this time. We will follow the patient. Discharge Plan - Discharge Medications Prescriptions: Arformoterol [Brovana] 15 mcg IH BID #60 neb Gabapentin [Neurontin] 100 mg PO HS #30 capsule Promethazine HCl/Codeine [Promethazine-Codeine Syrup] 5 ml PO Q6 PRN #120 syrup PRN Reason: Cough - Follow Up Plan Condition: FAIR Disposition: HOME/ ROUTINE Instructions: Bronchoscopy, Diagnostic, Chronic Bronchitis (DC)
== END 2018-09-14 11:22 | disposition home or self-care (01) | DRG 166 ==
LOC: C.ER 09:26 → C.9E 11:26 → C.3T 12:52
PROVIDERS: ADMIT Internal Medicine; ATTEND Internal Medicine
PROC: 0BDB8ZX Extraction of Left Lower Lobe Bronchus, Via Natural or Artificial Opening Endoscopic, Diagnostic (ICD-10-PCS; 2018-09-13)
PROC: 0B9M8ZX Drainage of Bilateral Lungs, Via Natural or Artificial Opening Endoscopic, Diagnostic (ICD-10-PCS; principal; 2018-09-13 13:00)
DX: J84.9 Interstitial pulmonary disease, unspecified (principal); J18.9 Pneumonia, unspecified organism; J20.9 Acute bronchitis, unspecified; I12.9 Hypertensive chronic kidney disease with stage 1 through stage 4 chronic kidney disease, or unspecified chronic kidney disease; N18.9 Chronic kidney disease, unspecified; Z85.72 Personal history of non-Hodgkin lymphomas; M19.90 Unspecified osteoarthritis, unspecified site; K21.9 Gastro-esophageal reflux disease without esophagitis